=== PATIENT | female | born 1985 | race Caucasian/White ===

== ENCOUNTER 2018-03-24 20:23 | Emergency (ER) | payer OTHER ==
[2018-03-24 20:51] LABS: URINE APPEARANCE Clear; URINE BILIRUBIN Negative (NEGATIVE); URINE COLOR Yellow; URINE GLUCOSE (UA) Negative (NEGATIVE); URINE KETONE 1+ (NEGATIVE); URINE LEUK ESTERASE Negative (NEGATIVE); URINE NITRITE Negative (NEGATIVE); URINE PROTEIN Trace (NEGATIVE)
[2018-03-24 20:54] LABS: HCG,QUALITATIVE URINE Positive
--- NOTE | 2018-03-24 21:09 | PDOC ---
History of Present Illness - General History Source: Patient Exam Limitations: No Limitations - History of Present Illness Initial Comments: 32YOF currently 5wks (4 miscarriages), with pmh of ovarian cysts presents to the emergency department complaining of sharp LLQ pain with radiation to left lower back and slight vaginal spotting. She states spotting only occured from 03/21-03/22 and she is no longer spotting. Denies n/v/d, dizziness/faintness, no urinary sx, abdominal pain, fever chills. No Headache. Patient states this was a natural conception. Patient notes her current pain is not similar to what she experienced during her previous miscarriages. Denies EtOH, drug, tobacco use. Denies ectopic pregnancies. Surgical hx: DNC 03/24/18 21:53 <Dianna Campuzano - Last Filed: 03/24/18 21:53> - General History Source: Patient Exam Limitations: No Limitations <Ramona Huerta - Last Filed: 03/24/18 23:47> - General Chief Complaint: ,Possible Stated Complaint: & CRAMPING Time Seen by Provider: 03/24/18 20:50 Past History <Dianna Campuzano - Last Filed: 03/24/18 21:53> - Reproductive History Is Patient Now?: Yes (#): 5 Para: 2 Spontaneous : 4 <Ramona Huerta - Last Filed: 03/24/18 23:47> - Past Medical History Allergies/Adverse Reactions: Allergies Allergy/AdvReac Type Severity Reaction Status Date / Time No Known Allergies Allergy Verified 03/24/18 20:25 Home Medications: Ambulatory Orders Aspirin [Aspirin EC] 81 mg PO DAILY 03/24/18 Vit,Castro 74/Iron/Folic [ Low Iron Tablet] 1 each PO DAILY Review of Systems - Review of Systems Able to Perform ROS?: Yes Comments:: Constitutional: no fevers or chills. HEENT: no headache or dizziness. No congestion. No visual/hearing disturbances. CVS: no cp or syncope. Resp: no sob. No cough. Abdomen: +LLQ abdominal pain, No nausea or vomiting. Back: +back pain Genitourinary: +Vaginal spotting. no urinary sx, hematuria. MUSCULOSKELETAL: +Left low back pain. No joint pain and swelling. No neck pain. SKIN: no redness or skin changes, no discharge, no rash. No wounds. Hematologic: no easy bruising/bleeding. NEUROLOGIC: No headache, dizziness, LOC or altered mental status. No weakness, numbness or tingling. All other systems reviewed and negative, or as documented in HPI. 03/24/18 21:54 <Dianna Campuzano - Last Filed: 03/24/18 21:53> *Physical Exam - Physical Exam Comments: General: Well appearing, awake and alert, NAD. HEENT: NCAT, PERRL, EOMI, clear conjunctiva, anicteric, moist mucus membranes, clear oropharynx, no oral lesions.. Neck: neck supple, FROM Resp: CTAB, normal and even respirations, no respiratory distress CVS: RRR, no murmurs, 2+ peripheral pulses throughout, no peripheral edema Abdomen: +LLQ tenderness +Obese abdomen. soft,, no peritoneal signs. No CVAT Female : normal external genitalia, no lesions, clear vaginal vault, no CMT, no adnexal tenderness. Smooth and pink cervix, closed. Back: No CVA tenderness. nontender, normal inspection and ROM MSK: no edema, MADRID x4, ROM intact. Extrem: no calf tenderness Neuro: alert, oriented appropriately; no focal neurologic deficits Skin: warm and well perfused, cap refill <2 sec, normal color 03/24/18 21:54 <Dianna Campuzano - Last Filed: 03/24/18 21:53> ED Treatment Course - LABORATORY CBC & Chemistry Diagram: 03/24/18 21:39 - ADDITIONAL ORDERS Additional order review: Laboratory Results 03/24/18 20:40 Urine Color Yellow Urine Appearance Clear Urine pH 6.0 Ur Specific [place] 1.025 Urine Protein Trace Urine Glucose (UA) Negative Urine Ketones 1+ H Urine Blood Negative Urine Nitrite Negative Urine Bilirubin Negative Urine Urobilinogen 1.0 Ur Leukocyte Esterase Negative Urine HCG, Qual Positive <Dianna Campuzano - Last Filed: 03/24/18 21:53> - LABORATORY CBC & Chemistry Diagram: 03/24/18 21:39 03/24/18 21:08 - ADDITIONAL ORDERS Additional order review: Laboratory Results 03/24/18 20:40 Urine Color Yellow Urine Appearance Clear Urine pH 6.0 Ur Specific [place] 1.025 Urine Protein Trace Urine Glucose (UA) Negative Urine Ketones 1+ H Urine Blood Negative Urine Nitrite Negative Urine Bilirubin Negative Urine Urobilinogen 1.0 Ur Leukocyte Esterase Negative Urine HCG, Qual Positive - RADIOLOGY Radiology Studies Ordered: Category Date Time Status TRANSVAGINAL US PREG [US] Stat Ultrasound 03/24/18 21:08 Ordered <Ramona Huerta - Last Filed: 03/24/18 23:47> Medical Decision Making - Medical Decision Making 03/24/18 21:14 32 YOF with n o medical history p/w intermittent vaginal spotting and LLQ pain x 2-3 days. no ultrasounds in first trimester yet. DDx female: ectopic , miscarriage, demise, subchorionic hematoma, UTI in in . Fibroid uterus, ovarian cyst. vaginitis, infection, electrolyte/metabolic derangements. Vital signs reviewed, mild tachy noted, normotensive, will recheck (normalized) . pelvic exam as documented, no bleeding here, closed cervix. Prior notes reviewed, including admissions, discharges and consultations. laboratory results and imaging reviewed, basic labs and lytes wnl, notable for normal LFTs/lipase. UA_no s/s infection, no blood, small ketones but orally hydrating. beta hcg 900, O positive, no rhogam ED course: declines analgesia, well appearing. tolerating fluids TVUS_small 1cm left hemorrhagic ovarian cyst. no torsion. small FF (rupture of cyst vs early ectopic). pseudo vs gestational sac, no definitive IUP visualized yet, also 5 weeks so still early with hcg below discriminatory zone. OB cs, spoke with Dr. Rodriguez, can follow up in 2 days for beta recheck, serial monitoring. provided pt with bleeding precautions and ectopic s/s. otc tylenol PRN pain control Dispo: Pt to be discharged in stable condition. Patient and family made aware of impression and plan, return precautions discussed (including but not limited to worsening pain or symptoms), fevers, or signs of infection, chest pain, respiratory distress, inability to tolerate oral intake, dehydration, syncope, or neurologic changes). Follow up with PMD and/or specialist as recommended, follow up information provided, take medications as instructed for duration of time. continue with supportive care, avoid triggers and precipitants. All questions answered to patient's satisfaction and expressed understanding and comfort with this. 03/24/18 23:41 03/24/18 23:42 <Ramona Huerta - Last Filed: 03/24/18 23:47> *DC/Admit/Observation/Transfer - Attestations Scribe Attestion: 03/24/18 21:40 Documentation prepared by ROXANNE Vasquez, acting as chief medical technologist for Ramona Huerta MD. <Dianna Campuzano - Last Filed: 03/24/18 21:53> - Discharge Dispostion Decision to Admit order: No - Attestations Physician Attestion: 03/24/18 21:09 I, Ramona Huerta MD, attest that this document has been prepared under my direction and personally reviewed by me in its entirety. I further attest, that it accurately reflects all work, treatment, procedures and medical decision -making performed by me. <Ramona Huerta - Last Filed: 03/24/18 23:47> Diagnosis at time of Disposition: Vaginal bleeding during , , location unknown - Discharge Dispostion Disposition: HOME Condition at time of disposition: Good - Referrals Referrals: Sagar Hill [Primary Care Provider] - Leilani Rodriguez MD [Staff Physician] - - Patient Instructions Printed Discharge Instructions: DI for Ectopic , DI for -- Discomforts and Remedies, DI for Vaginal Bleeding During Additional Instructions: Your laboratory / imaging results were normal, beta hcg ( number) is 900 you could have an early your ultrasound is indeterminate, could be early vs early ectopic . there is also small hemorrhagic ovarian cyst on left, that could be causing your symptoms OB follow up with Dr. Rodriguez provided (or your own Dr. Hill) please recheck your beta hcg in 2 days if unable to see doctor in 2 days and symptoms worsen, you can return to the Emergency department sooner in 2-3 days. Follow up with your physician and consultants as instructed, take your medications as instructed including vitamins Return if worsening symptoms including fevers, headache, vomiting, visual or hearing disturbances, abdominal pain, chest pain, shortness of breath, syncope, dehydration, inability to take things by mouth/vomiting, altered mental status, vaginal bleeding or worsening concerning symptoms. - Post Discharge Activity
[2018-03-24 21:43] VITALS: TEMP 97.8; BMI 45.0
[2018-03-24 21:51] LABS: BASO % 3.1 % (0-2.0); EOS % 1.5 % (0-4.5); HEMATOCRIT 39.3 % (32.4-45.2); HEMOGLOBIN 13.2 GM/dl (10.7-15.3); LYMPH % 30.4 % (8-40); MCH 31.7 pg (25.7-33.7); MCHC 33.5 g/dl (32.0-36.0); MEAN CELL VOLUME 94.7 fl (80-96); MEAN PLT VOLUME 8.6 fl (7.5-11.1); MONO % 6.2 % (3.8-10.2); NEUT % 58.8 % (42.8-82.8); PLATELET COUNT 300 K/MM3 (134-434); RBC 4.16 M/mm3 (3.60-5.2); RDW 12.2 % (11.6-15.6); WHITE BLOOD COUNT 11.2 K/mm3 (4.0-10.8)
[2018-03-24 22:06] LABS: ALBUMIN 3.8 g/dl (3.5-5.0); ALK PHOS 70 U/L (32-92); ANION GAP 9 MMOL/L (8-16); BILIRUBIN,TOTAL 0.5 mg/dl (0.2-1.0); BLOOD UREA NITROGEN 14 mg/dl (7-18); CHLORIDE 104 mmol/L (98-107); CO2 23 mmol/L (22-28); CREATININE 0.6 mg/dl (0.6-1.3); GLUCOSE,RANDOM 125 mg/dl (74-106); POTASSIUM 3.7 mmol/L (3.5-5.1); SGOT/AST 21 U/L (10-42); SGPT/ALT 17 U/L (10-40); SODIUM 136 mmol/L (136-145); TOT PROT 7.2 g/dl (6.4-8.3)
[2018-03-24 22:06] LABS: INR 1.07 (0.82-1.09)
[2018-03-24 23:50] VITALS: BP 105/65; PULSE 105
== END 2018-03-24 23:53 | disposition home or self-care (01) ==
LOC: FER 20:23
DX: O46.8X1 Other antepartum hemorrhage, first trimester (principal); Z3A.01 Less than 8 weeks gestation of pregnancy; N83.202 Unspecified ovarian cyst, left side
CPT/HCPCS: 36415; 76817-TC; 80053; 81003; 84702; 84703; 85025; 85610; 86850; 86900; 86901; 99282-25

== ENCOUNTER 2018-03-27 15:06 | Emergency (ER) | payer OTHER ==
--- NOTE | 2018-03-27 15:28 | PDOC ---
History of Present Illness - General History Source: Patient Exam Limitations: No Limitations - History of Present Illness Initial Comments: 03/27/18 15:58 The patient is a 32 year old 5 weeks female A4, with a significant past medical history of miscarriages and ovarian cysts, who presents to the emergency department for repeat lab work and ultrasound. As per patient, she was seen in the ER 4 days ago for abdominal pain and made aware she was . The ultrasound was not able to rule out an ectopic and was informed to report back to the ED for repeat ultrasound and lab work. She notes her past miscarriages have all been at approximately 5 weeks. Patient endorses left suprapubic pain, vaginal itching, and abnormal discharge for 3 days since her pelvic exam. She denies a history of ectopic pregnancies. denies recent fevers, chills, headache or dizziness. She denies recent nausea, vomit, diarrhea or constipation. She denies recent dysuria, frequency, urgency or hematuria. She denies recent chest pain or shortness of breath. Allergies: NKDA Past surgical history: DNC. Social history: Nonsmoker. Denies EtOH use and recreational drug use. LMP: 02/16/18 <Kirit Galvan - Last Filed: 03/27/18 18:12> <Janee Richardson - Last Filed: 03/27/18 18:59> - General Chief Complaint: Pain Stated Complaint: ABD PAIN Time Seen by Provider: 03/27/18 15:08 Past History <Kirit Galvan - Last Filed: 03/27/18 18:12> - Past Medical History COPD: No - Reproductive History (#): 5 Para: 2 Spontaneous : 4 - Suicide/Smoking/Psychosocial Hx Smoking History: Never smoked Hx Alcohol Use: No Drug/Substance Use Hx: No Substance Use Type: None <Janee Richardson - Last Filed: 03/27/18 18:59> - Past Medical History Allergies/Adverse Reactions: Allergies Allergy/AdvReac Type Severity Reaction Status Date / Time No Known Allergies Allergy Verified 03/24/18 20:25 Home Medications: Ambulatory Orders Aspirin [Aspirin EC] 81 mg PO DAILY 03/24/18 Vit,Castro 74/Iron/Folic [ Low Iron Tablet] 1 each PO DAILY Clotrimazole [Clotrimazole-7] 45 gm VG DAILY 7 Days #7 cream.appl 03/27/18 Review of Systems - Review of Systems Able to Perform ROS?: Yes Comments:: 03/27/18 15:58 GENERAL/CONSTITUTIONAL: No fever or chills. No weakness. HEAD, EYES, EARS, NOSE AND THROAT: No change in vision. No ear pain or discharge. No sore throat. GASTROINTESTINAL: No nausea, vomiting, diarrhea or constipation. +GENITOURINARY: Left suprapubic pain. Vaginal itching. White discharge. No dysuria, frequency, or change in urination. CARDIOVASCULAR: No chest pain or shortness of breath. RESPIRATORY: No cough, wheezing, or hemoptysis. MUSCULOSKELETAL: No joint or muscle swelling or pain. No neck or back pain. SKIN: No rash NEUROLOGIC: No headache, vertigo, loss of consciousness, or change in strength/ sensation. ENDOCRINE: No increased thirst. No abnormal weight change. HEMATOLOGIC/LYMPHATIC: No anemia, easy bleeding, or history of blood clots. ALLERGIC/IMMUNOLOGIC: No hives or skin allergy. All Other Systems: Reviewed and Negative <Kirit Galvan - Last Filed: 03/27/18 18:12> *Physical Exam - Vital Signs Last Vital Signs Temp Pulse Resp BP Pulse Ox 98.3 F 90 20 106/69 100 03/27/18 15:06 03/27/18 15:06 03/27/18 15:06 03/27/18 15:06 03/27/18 15:06 - Physical Exam Comments: 03/27/18 16:48 Constitutional: Awake, alert, oriented. No acute distress. Head: Normocephalic. Atraumatic Eyes: PERRL. EOMI. Conjunctivae are not pale. ENT: Mucous membranes are moist and intact. Posterior pharynx without exudates or erythema. Uvula midline. Neck: Supple. Full ROM. No lymphadenopathy. Cardiovascular: Regular rate. Regular rhythm. S1, S2 regular. Distal pulses are 2+ and symmetric. Pulmonary/Chest: No evidence of respiratory distress. Clear to auscultation bilaterally No wheezing, rales or rhonchi. +Abdominal: Obese. Left suprapubic/pelvic tenderness. Soft and non-distended. No rebound, guarding or rigidity. No organomegaly. No palpable masses. Good bowel sounds. +Pelvic: Mild left adnexal tenderness without masses. Moderate white cheesy discharge. External genitalia normal without lesions. Back: No CVA tenderness. Musculoskeletal: No edema. No cyanosis. No clubbing. Full range of motion in all extremities. No calf tenderness. Radial/pedal pulses are intact and 2+ bilaterally Skin: Skin is warm and dry. No petechiae. No purpura. Neurological: Alert and oriented to person, place, and time. Cranial nerves II -XII are grossly intact. Normal speech. Strength is grossly symmetric. No sensory deficits. Psychiatric: Good eye contact. Normal interaction, affect and behavior. <Kirit Galvan - Last Filed: 03/27/18 18:12> ED Treatment Course - LABORATORY CBC & Chemistry Diagram: 03/27/18 16:24 03/27/18 16:24 <Kirit Galvan - Last Filed: 03/27/18 18:12> - LABORATORY CBC & Chemistry Diagram: 03/27/18 16:24 03/27/18 16:24 <Janee Richardson - Last Filed: 03/27/18 18:59> Medical Decision Making - Medical Decision Making 03/27/18 15:54 a/p: 32yo female with L pelvic pain since tuesday - had spotting on . at around 5 weeks gestation -no longer with vaginal bleeding -told to have repeat beta hcg -also poss early iup on prior ultrasound -still with L pelvic pain - hemorrhagic ovarian cyst on prior imaging -will repeat labs -will repeat pelvic exam -will repeat tvus -pt now concerned she has a yeast infection 03/27/18 16:01 beta was 903 on 03/24 pt O+ 03/27/18 17:51 poss early IUP on ultrasound, still with small amount of ff within r adnexal region and complex L ovarian cyst mean gestational sac size measures less than 5 weeks gestation 03/27/18 18:59 beta 2842.9 increased from 903 stable for d/c to home, will need repeat beta and ultrasound in 2 days <Janee Richardson - Last Filed: 03/27/18 18:59> *DC/Admit/Observation/Transfer - Attestations Scribe Attestion: 03/27/18 15:58 Documentation prepared by Kirit Galvan, acting as medical records clerk for Janee Richardson DO. <Kirit Galvan - Last Filed: 03/27/18 18:12> - Discharge Dispostion Decision to Admit order: No - Attestations Physician Attestion: 03/27/18 18:43 I, Dr. Janee Richardson DO, attest that this document has been prepared under my direction and personally reviewed by me in its entirety. I further attest, that it accurately reflects all work, treatment, procedures and medical decision -making performed by me. <Janee Richardson - Last Filed: 03/27/18 18:59> Diagnosis at time of Disposition: Vulvovaginal candidiasis, Hemorrhagic ovarian cyst, , location unknown - Discharge Dispostion Disposition: HOME Condition at time of disposition: Stable - Prescriptions Prescriptions: Clotrimazole [Clotrimazole-7] 45 gm VG DAILY 7 Days #7 cream.appl - Referrals Referrals: Sagar Hill [Staff Physician] - - Patient Instructions Printed Discharge Instructions: DI for Vaginal Yeast Infection, DI for Ovarian Cyst, DI for Abdominal Pain -- Early Additional Instructions: Please repeat your beta hcg in 48 hours. Please also repeat your ultrasound in the next 2-3 days. Please follow up with your [employer] in the next 1-2 days. Please use the vaginal antifungal medication. Please return to the ED with any further concerns or complaints.
[2018-03-27 15:52] VITALS: BP 106/69; PULSE 90; TEMP 98.3; BMI 39.9
[2018-03-27 16:52] LABS: PH,URINE 5.5 (4.5-8); URINE APPEARANCE Clear; URINE BILIRUBIN Negative (NEGATIVE); URINE COLOR Yellow; URINE GLUCOSE (UA) Negative (NEGATIVE); URINE KETONE Negative (NEGATIVE); URINE LEUK ESTERASE Negative (NEGATIVE); URINE NITRITE Negative (NEGATIVE); URINE PROTEIN Negative (NEGATIVE); URINE UROBILINOGEN 0.2 (0.2-1.0)
[2018-03-27 17:16] LABS: BASO % 0.3 % (0-2.0); EOS % 1.4 % (0-4.5); HEMOGLOBIN 12.8 GM/dl (10.7-15.3); LYMPH % 25.7 % (8-40); MCH 31.8 pg (25.7-33.7); MCHC 33.7 g/dl (32.0-36.0); MEAN CELL VOLUME 94.2 fl (80-96); MEAN PLT VOLUME 8.7 fl (7.5-11.1); MONO % 6.6 % (3.8-10.2); PLATELET COUNT 295 K/MM3 (134-434); RBC 4.03 M/mm3 (3.60-5.2)
[2018-03-27 17:25] LABS: ALBUMIN 3.8 g/dl (3.5-5.0); ALK PHOS 58 U/L (32-92); ANION GAP 12 MMOL/L (8-16); BILIRUBIN,TOTAL 0.5 mg/dl (0.2-1.0); BLOOD UREA NITROGEN 8 mg/dl (7-18); CALCIUM 8.9 mg/dl (8.4-10.2); CHLORIDE 101 mmol/L (98-107); CO2 23 mmol/L (22-28); CREATININE 0.6 mg/dl (0.6-1.3); GLUCOSE,RANDOM 101 mg/dl (74-106); POTASSIUM 3.6 mmol/L (3.5-5.1); SGOT/AST 27 U/L (10-42); SGPT/ALT 23 U/L (10-40); SODIUM 136 mmol/L (136-145); TOT PROT 6.9 g/dl (6.4-8.3)
== END 2018-03-27 19:09 | disposition home or self-care (01) ==
LOC: FER 15:06
DX: O98.812 Other maternal infectious and parasitic diseases complicating pregnancy, second trimester (principal); B37.3 Candidiasis of vulva and vagina; Z3A.01 Less than 8 weeks gestation of pregnancy; N83.292 Other ovarian cyst, left side
CPT/HCPCS: 36415; 76801-TC; 76817-TC; 80053; 81003; 84702; 85025; 99282-25